=== PATIENT | female | born 1995 | race Hispanic/Latino ===

== ENCOUNTER 2018-05-30 01:07 | Emergency (ER) | payer SELFPAY ==
[2018-05-30] MEDS ORDERED: diphenhydrAMINE 25 MG CAP ONE (02:23)
[2018-05-30] MEDS ORDERED: Dexamethasone 4 MG TAB ONE (02:23)
[2018-05-30] MEDS ORDERED: Famotidine 20 MG TAB ONE (03:03)
== END 2018-05-30 03:46 | disposition home or self-care (01) ==
LOC: ERS 01:07
DX: L50.9 Urticaria, unspecified (principal)
CPT/HCPCS: 99282; J8540; Q0163